=== PATIENT | female | born 1985 | race Caucasian/White ===

== ENCOUNTER → 2024-08-28 | Emergency (ER) | payer MEDICAID ==
[~2024-08-28] VITALS: Ht 165.1 cm; Wt 108.9 kg
[~2024-08-28] MED LIST: MAGN400S60 PO
[2024-08-28 19:25] VITALS: BP 128/76; PULSE 72; RESP 18; TEMP 98; O2SAT 99
[2024-08-28 20:42] VITALS: BP 116/64; PULSE 72; RESP 13; O2SAT 99
[2024-08-28 21:08] LABS: APPEARANCE,URINE CLEAR (CLEAR); COLOR,URINE YELLOW (YELLOW)
[2024-08-28 21:09] LABS: BILIRUBIN,URINE NEGATIVE (NEGATIVE); BLOOD, URINE NEGATIVE (NEGATIVE); PROTEIN,URINE NEGATIVE (NEGATIVE); UGLUCOSE NEGATIVE (NEGATIVE)
[2024-08-28 21:10] LABS: LEUKOCYTE ESTERASE ,URINE TRACE (NEGATIVE); NITRITE, URINE NEGATIVE (NEGATIVE); UROBILINOGEN,URINE 0.2 EU/dL (0.2 - 1)
[2024-08-28 21:15] LABS: BACTERIA,URINE FEW /HPF (None Seen); RBC,URINE 0-5 /HPF (0-5); SQUAMOUS EPITHELIAL CELL,UR 4-10 (MOD) /LPF (0-3 (FEW)); WBC,URINE 0-5 /HPF (0-5)
== END | disposition home or self-care (01) ==
LOC: MED 19:06
DX: K59.00 Constipation, unspecified (principal); Z79.899 Other long term (current) drug therapy
CPT/HCPCS: 74018; 81001; 99284